=== PATIENT | female | born 1945 | race African-American/Black ===

== ENCOUNTER → 2018-05-23 | Outpatient (CLI) | payer MEDICARE, BC ==
[~2018-05-23] MED LIST: AMLO2.5T45 PO; ATOR20TA65 PO; HYDR25TA PO
== END | disposition home or self-care (01) ==
LOC: RAD 11:40
PROVIDERS: ATTEND Specialist
DX: I77.810 Thoracic aortic ectasia (principal); I70.0 Atherosclerosis of aorta; Z88.5 Allergy status to narcotic agent; Z79.899 Other long term (current) drug therapy
CPT/HCPCS: 71046

== ENCOUNTER 2018-11-23 10:55 | Inpatient (IN) | payer MEDICARE, BC ==
[~2018-11-23] VITALS: Ht 157 cm; Wt 73.6 kg
[2018-11-23] VITALS (13 sets, daily range): BP systolic 95–147; BP diastolic 68–93
[2018-11-23] MEDS ORDERED: HYDROCODONE/ACETAMINOPHEN 5/325MG TABLET PO PRN (12:30)
[2018-11-23] MEDS ORDERED: ONDANSETRON HCL 4MG/2ML INJ IV PRN (12:30)
[2018-11-23] MEDS ORDERED: ACETAMINOPHEN 325MG TABLET PO PRN ×2 (12:30→15:45)
[2018-11-23] MEDS ORDERED: CLONIDINE 0.1MG TABLET PO PRN (12:30)
[2018-11-23] MEDS ORDERED: IPRATROPIUM/ALBUTEROL 0.5-3(2.5)MG/3ML NEB HHN PRN (12:30)
[2018-11-23] MEDS ORDERED: HEPARIN SODIUM 1,000 UNIT/1ML VIAL IV ONE (14:28)
[2018-11-23] MEDS ORDERED: NICARDIPINE 100MCG/ML 10ML VIAL (CATH LAB) IV ONE (14:45)
[2018-11-23] MEDS ORDERED: NITROGLYCERIN 50MCG/ML 10ML VIAL (CATH LAB) IV ONE (14:45)
[2018-11-23] MEDS ORDERED: AMLO10TA80 PO (14:52)
[2018-11-23] MEDS ORDERED: IOHEXOL-300 100 ML BOTTLE ONE ×2 (14:55→15:24)
[2018-11-23] MEDS ORDERED: LIDOCAINE HCL 1% 20ML VIAL (Pyxis) INJ ONE (14:55)
[2018-11-23] MEDS ORDERED: HEPARIN 1,000 UNITS in 0.9% NACL (2 UNITS/ML) 500ML PREMIX IV ONE (14:55)
[2018-11-23] MEDS ORDERED: BC POWDER PO (14:57)
[2018-11-23] MEDS ORDERED: MIDAZOLAM HCL 2 MG/2 ML VIAL ONE (14:57)
[2018-11-23] MEDS ORDERED: FENTANYL CITRATE/PF 50MCG/ML 2ML VIAL ONE (14:57)
[2018-11-23] MEDS ORDERED: CHOL100044 PO (15:01)
[2018-11-23] MEDS ORDERED: POTA99TA4 PO (15:01)
[2018-11-23] MEDS ORDERED: MAGN400C PO (15:01)
[2018-11-23] MEDS ORDERED: [UNRECOGNIZED DRUG - CODE] PO (15:01)
[2018-11-23] MEDS ORDERED: CYAN1TAB43 PO (15:01)
[2018-11-23] MEDS ORDERED: CLOPIDOGREL 75MG TABLET ONE (15:37)
[2018-11-23] MEDS ORDERED: ASPIRIN 325MG TABLET ONE (15:37)
[2018-11-23] MEDS ORDERED: ATROPINE SULFATE 1MG/10ML SYR IV PRN (15:45)
[2018-11-23] MEDS ORDERED: TRAMADOL 50MG TABLET PO PRN (17:30)
[2018-11-23] MEDS ORDERED: AMLODIPINE 5MG TABLET PO SCH (21:00)
[2018-11-23] MEDS: AMLODIPINE 5MG TABLET PO SCH (21:00)
[2018-11-23] MEDS ORDERED: ATORVASTATIN CALCIUM 40MG TABLET PO SCH ×2 (21:00)
[2018-11-24] VITALS (7 sets, daily range): BP systolic 107–143; BP diastolic 73–91
[2018-11-24 07:24] LABS: EOSINOPHILS % 4.5 % (0.0-5.0); HEMATOCRIT. 42.9 % (36.0-48.0); HEMOGLOBIN. 13.8 g/dL (12.0-16.0); LYMPHOCYTES % 22.7 % (20.0-50.0); MEAN CORPUSCULAR VOLUME 83.9 fL (81.0-99.0); MEAN PLATELET VOLUME 9.1 fl (7.4-10.4); MONOCYTES % 10.7 % (2.0-8.0); NEUTROPHILS % 61.1 % (40.0-76.0); PLATELET 206 x1000/uL (130-400); RED BLOOD CELL COUNT 5.11 mill/uL (4.2-5.4); RED CELL DISTRIBUTION WIDTH 14.6 % (11.6-14.6)
[2018-11-24] MEDS: AMLODIPINE 5MG TABLET PO SCH (07:51)
[2018-11-24 07:54] LABS: CHLORIDE 112 mEq/L (98-107)
[2018-11-24 08:25] LABS: LDL CHOLESTEROL 72 mg/dL (5-100)
[2018-11-24 08:29] LABS: HDL CHOLESTEROL 56 mg/dL (40-59)
[2018-11-24] MEDS ORDERED: CLOPIDOGREL 75MG TABLET PO SCH (09:00)
[2018-11-24] MEDS ORDERED: ASPIRIN 325MG TABLET PO SCH (09:00)
== END 2018-11-24 09:49 | disposition home or self-care (01) | DRG 247 ==
LOC: CCL 10:55 → 3WST 10:56
PROVIDERS: ADMIT Specialist; ATTEND Specialist
PROC: 4A023N7 Measurement of Cardiac Sampling and Pressure, Left Heart, Percutaneous Approach (ICD-10-PCS; principal; 2018-11-23)
PROC: 027034Z Dilation of Coronary Artery, One Artery with Drug-eluting Intraluminal Device, Percutaneous Approach (ICD-10-PCS; 2018-11-23)
PROC: B2111ZZ Fluoroscopy of Multiple Coronary Arteries using Low Osmolar Contrast (ICD-10-PCS; 2018-11-23)
PROC: B2151ZZ Fluoroscopy of Left Heart using Low Osmolar Contrast (ICD-10-PCS; 2018-11-23)
DX: I25.10 Atherosclerotic heart disease of native coronary artery without angina pectoris (principal); I10 Essential (primary) hypertension; E78.00 Pure hypercholesterolemia, unspecified; F17.210 Nicotine dependence, cigarettes, uncomplicated
CPT/HCPCS: 36415; 80048; 80061; 83036; 83735; 85347; 92928; 93005; 93458; C1769; C1874; C1887; C1893; J1644; J2250; J3010; J3490; Q9967

== ENCOUNTER → 2021-05-21 | Outpatient (CLI) | payer MEDICARE, BC ==
[~2021-05-21] MED LIST changes: +AMLO10TA80 PO; -AMLO2.5T45 PO; +BARIUM SULFATE 176 GM SUSP.RECON ONE; +BC POWDER PO; +CHOL100044 PO; +CYAN1TAB43 PO; +EZ-HD SUSPENSION(BARIUM SULFATE 340GM) PO ONE; -HYDR25TA PO; +MAGN400C PO; +POTA99TA4 PO; +[UNRECOGNIZED DRUG - CODE] PO
== END | disposition home or self-care (01) ==
LOC: RAD 10:01
PROVIDERS: ATTEND Specialist
DX: K57.30 Diverticulosis of large intestine without perforation or abscess without bleeding (principal); M47.816 Spondylosis without myelopathy or radiculopathy, lumbar region; M62.89 Other specified disorders of muscle
CPT/HCPCS: 74270